=== PATIENT | male | born 1955 | race Caucasian/White ===

== ENCOUNTER 2016-07-28 09:33 | Emergency (ER) | payer BC ==
[~2016-07-28] VITALS: Ht 177.8 cm; Wt 102.4 kg
[2016-07-28 12:24] LABS: HEMATOCRIT 40.7 % (38.0-50.0); MCH 30.4 PG (29.0-34.0); MCHC 33.4 G/DL (30.0-36.0); MCV 90.8 FL (86-99); MEAN PLAT.VOLUME 11.5 uM^3 (9.0-12.4); PLATELET COUNT 223 K/uL (156-360); RBC DIS.WIDTH-CV 14.4 % (11.8-14.6); RBC DIS.WIDTH-SD 48.1 % (39-53); RED BLOOD COUNT 4.48 M/uL (4.00-5.50); WHITE BLOOD COUNT 14.3 K/uL (4.1-10.2)
[2016-07-28 12:34] LABS: CHLORIDE 104 mEq/L (99-109); POTASSIUM 3.8 mEq/L (3.7-5.4)
[2016-07-28 12:35] LABS: SODIUM 140 mEq/L (136-147)
[2016-07-28 12:36] LABS: GLUCOSE 137 mg/dL (70-99)
[2016-07-28 12:38] LABS: ANION GAP 12 MEQ/L (2-14)
[2016-07-28 12:40] LABS: GFR ESTIMATE (CALCULATED) 44 mL/min/
[2016-07-28 12:41] LABS: UREA NITROGEN (BUN) 38 mg/dL (9-23)
[2016-07-28 14:31] VITALS: BP 156/72
[2016-07-29] MEDS ORDERED: BYSTOLIC5 MG PO (15:42)
[2016-07-29] MEDS ORDERED: COZAAR100 MG PO (15:43)
[2016-07-29] MEDS ORDERED: NORVASC10 MG PO (15:43)
[2016-07-29] MEDS ORDERED: DYAZIDE, MA1 CAPSULE PO (15:44)
[2016-07-29] MEDS ORDERED: MULTIVITAMIN1 EAC2 PO (15:44)
[2016-07-29] MEDS ORDERED: CO Q-10200 MG PO (15:44)
[2016-07-29] MEDS ORDERED: ASCORBIC ACID500 M3 PO (15:45)
[2016-07-29] MEDS ORDERED: VITAMIN D31000 UNI2 PO (15:45)
[2016-07-29] MEDS ORDERED: VITAMIN E200 UNIT PO (15:45)
== END 2016-07-28 14:32 | disposition home or self-care (01) ==
LOC: EME 09:33
PROVIDERS: Nurse Practitioner Family
PROC: 3E0234Z Introduction of Serum, Toxoid and Vaccine into Muscle, Percutaneous Approach (ICD-10-PCS; principal; 2016-07-28)
DX: L03.115 Cellulitis of right lower limb (principal); Z23 Encounter for immunization; I10 Essential (primary) hypertension; Z87.891 Personal history of nicotine dependence
CPT/HCPCS: 73590; 80048; 85027; 87040; 99281; 99284; J7030

== ENCOUNTER 2016-12-20 21:47 | Emergency (ER) | payer BC ==
[~2016-12-20] VITALS: Ht 177.8 cm; Wt 100.0 kg
[~2016-12-20 21:47] MED LIST: ASCORBIC ACID500 M3 PO; BYSTOLIC5 MG PO; CO Q-10200 MG PO; COZAAR100 MG PO; DYAZIDE, MA1 CAPSULE PO; MULTIVITAMIN1 EAC2 PO; NORVASC10 MG PO; VITAMIN D31000 UNI2 PO; VITAMIN E200 UNIT PO
[2016-12-20 21:51] VITALS: BP 149/88
== END 2016-12-20 23:14 | disposition home or self-care (01) ==
LOC: EME 21:47
PROC: 0HQGXZZ Repair Left Hand Skin, External Approach (ICD-10-PCS; principal; 2016-12-20)
DX: S61.211A Laceration without foreign body of left index finger without damage to nail, initial encounter (principal); W26.8XXA Contact with other sharp object(s), not elsewhere classified, initial encounter; I10 Essential (primary) hypertension; Z85.51 Personal history of malignant neoplasm of bladder; Z87.891 Personal history of nicotine dependence
CPT/HCPCS: 99281; 99283

== ENCOUNTER 2017-08-17 23:04 | Emergency (ER) | payer BC ==
[~2017-08-17] VITALS: Ht 177.8 cm; Wt 99.9 kg
[2017-08-18] LABS: HEMATOCRIT 43.3 % (38.0-50.0); HEMOGLOBIN 15.3 G/DL (12.5-16.6); MCH 30.9 PG (29.0-34.0); MCHC 35.3 G/DL (30.0-36.0); MCV 87.5 FL (86-99); PLATELET COUNT 254 K/uL (156-360); RBC DIS.WIDTH-CV 13.4 % (11.8-14.6); RBC DIS.WIDTH-SD 42.9 % (39-53); RED BLOOD COUNT 4.95 M/uL (4.00-5.50); WHITE BLOOD COUNT 7.8 K/uL (4.1-10.2)
[2017-08-18 00:15] LABS: INTER. NORMALIZED RATIO 1.1
[2017-08-18 00:17] LABS: PTT 55.4 SEC (25-37)
[2017-08-18 00:18] LABS: ALBUMIN 4.3 g/dL (3.2-4.8); CHLORIDE 101 mEq/L (99-109); POTASSIUM 3.7 mEq/L (3.7-5.4); SODIUM 138 mEq/L (136-147)
[2017-08-18 00:19] LABS: MAGNESIUM 2.3 mg/dL (1.3-2.7)
[2017-08-18 00:20] LABS: GLUCOSE 105 mg/dL (70-99)
[2017-08-18 00:21] LABS: TOTAL PROTEIN 7.4 g/dL (6.4-8.3)
[2017-08-18 00:22] LABS: TOTAL BILIRUBIN 0.5 mg/dL (0.0-1.0)
[2017-08-18 00:23] LABS: SERUM ETHYL ALCOHOL < 10 mg/dL
[2017-08-18 00:24] LABS: ALKALINE PHOSPHATASE 43 IU/L (3-129); CREATININE 1.3 mg/dL (0.6-1.3); GFR ESTIMATE (CALCULATED) > 59 mL/min/ (58.99-99999)
[2017-08-18 00:25] LABS: UREA NITROGEN (BUN) 28 mg/dL (9-23)
[2017-08-18 00:26] LABS: AST (GOT) 25 IU/L (2-34)
[2017-08-18 00:27] LABS: ALT (GPT) 29 IU/L (3-49)
[2017-08-18 00:29] LABS: TROP-I INTERPRETATION NEGATIVE; TROPONIN-I < 0.01 ng/mL (0.0-0.30)
[2017-08-18 01:32] LABS: AMPHETAMINE NEGATIVE (500 ng/mL); BARBITURATES NEGATIVE (200 ng/mL); BENZODIAZEPINES NEGATIVE (150 ng/mL); BUPRENORPHINE NEGATIVE (10 ng/mL); COCAINE NEGATIVE (150 ng/mL); METHADONE NEGATIVE (200 ng/mL); METHAMPHETAMINE NEGATIVE (500 ng/mL); OPIATES (MORPHINE) NEGATIVE (100 ng/mL); OXYCODONE NEGATIVE (100 ng/mL); PHENCYCLIDINE NEGATIVE (25 ng/mL); PROPOXYPHENE NEGATIVE (300 ng/mL); THC CANNABINOIDS NEGATIVE (50 ng/mL); TRICYCLIC ANTIDEPRESSANTS NEGATIVE (300 ng/mL)
[2017-08-18 02:33] VITALS: BP 126/75
[2017-08-18 08:31] LABS: THYROTROPIN (TSH) 2.1 MIU/L (0.4-5.5)
== END 2017-08-18 02:35 | disposition home or self-care (01) ==
LOC: EME 23:04
PROVIDERS: Emergency Medicine
DX: I48.0 Paroxysmal atrial fibrillation (principal); R91.1 Solitary pulmonary nodule; R42 Dizziness and giddiness; I10 Essential (primary) hypertension; Z85.51 Personal history of malignant neoplasm of bladder; Z87.891 Personal history of nicotine dependence
CPT/HCPCS: 71045; 80053; 83735; 84443; 84484; 85027; 85610; 85730; 86850; 86900; 86901; 93005; 99281; 99285; G0480